=== PATIENT | male | born 1945 | race Caucasian/White ===

== ENCOUNTER 2016-07-03 22:46 | Emergency (ER) | payer OTHER ==
--- NOTE | 2016-07-04 01:03 | ED ORDER SUMMARY ---
..... Patient: RUDDY DANIELS OrderSheet [facility] VisitID: [id number] [address] [place] [address] 70y, M Registration Date/Time: 07/03/2016 ORDER SHEET Weight: 102.0 kg (stated) Allergies: No Known Drug Allergy GENERAL ORDERS: MEDICATION ORDERS: Clonidine PO 0.2 mg (NOW) (23:50 07/03/2016 Gabino FRIAS) (Ack 23:53 Lurdes R.Miya) (23:57 Leonardo Art) IV FLUIDS: ORDER SHEET NOTES: [Electronically signed by Danitza Fernandez R.N. (01:06 07/04/2016)] [Electronically signed by Hieu Castellon MD (10:01 07/07/2016)] [Electronically locked/signed by Danitza Fernandez R.N. (01:06 07/04/2016)]
--- NOTE | 2016-07-04 01:03 | ED NURSING NOTES ---
Clinical Report - Nurses [facility] [address] [place] [place] [address] 07/03/2016 22:47 [id number] Triage time 23:20 Jul 03 2016. Acuity: LEVEL 3. Chief Complaint: (HBP with double vision). Alert. CLEM COMA SCORE: Clem Coma Scale: 15- eyes open spontaneously (4); best verbal response- oriented x 4 (5); best motor response- obeys commands (6). --23:42 Cuong Cabrera R.N. 23:24 07/03/16. BP: 171/104. HR: 67. RR: 16. O2 saturation: 93% on room air. Temp: 98.9 F. Pain level now: 0/10. --23:42 Cuong Cabrera R.N. Weight: 102 kg stated. Height/Length: 72 inches Per Patient. BMI: 30.5. --23:42 Cuong Cabrera R.N. Medications Allopurinol Oral 300 mg, daily. AmLODIPine Besylate Oral 5 mg. Hydrochlorothiazide Oral 12.5 mg, 2x a day. --23:34 Cuong Cabrera R.N. Metoprolol Succinate ER Oral 50mg, daily. --23:36 Cuong Cabrera R.N. Lisinopril Oral 20 mg, 2x a day. --23:36 Cuong Cabrera R.N. Allergies No Known Drug Allergy. --23:33 Cuong Cabrera R.N. History Arrived by private vehicle. Historian: patient. Accompanied by spouse. Primary physician (Riley Peres). ( Seeing double and went to cost manager who sent him to another cost manager. Pt states that he might have gotten some home medications mixed.). This started yesterday. He has had weakness and a cough. ( Traveled to [place] recently and got pneumonia). Treatment DEVELOPMENT DIRECTOR: None. (took an extra Amlodipine 5 hours ago). PAST MEDICAL HX: Hypertension. Immunizations: up-to-date. SOCIAL HX: Never smoker. No alcohol use or drug use. No infectious disease exposure. ABUSE ASSESSMENT: No report of abuse. FALL RISK ASSESSMENT: Fall risk assessment completed. No fall risk identified. NUTRITIONAL RISK ASSESSMENT: The nutritional risk assessment revealed no deficiencies. FUNCTIONAL ASSESSMENT: Functional assessment: no impairments noted. LEARNING NEEDS ASSESSMENT: The learning needs assessment revealed no barriers. SKIN INTEGRITY ASSESSMENT: Skin integrity risk assessment completed. No skin integrity risk identified. --23:42 Cuong Cabrera R.N. PROBLEMS: Subungual Hematoma. Laceration. Crush Injury. Fractured Phalanx (Finger). Hypertension. Hepatitis. --23:38 Cuong Cabrera R.N. ADDITIONAL SURGERIES: Achilles Tendon Repair. --23:40 Cuong Cabrera R.N. Interventions ID and allergy band on patient. To treatment room. --23:42 Cuong Cabrera R.N. PHYSICAL ASSESSMENT Ambulatory to room. GENERAL / NEURO / PSYCH: Alert. Oriented X 4. Appears in pain. HEENT: No facial asymmetry noted. Mucous membranes are pink. RESPIRATORY: Respirations not labored. CVS: Normal sinus rhythm noted. Pulses within normal limits. GI / : Abdomen soft and nontender and normal bowel sounds. SKIN: Skin intact. Skin is warm and dry. Normal skin turgor. --00:06 Cuong Cabrera R.N. NURSING PROGRESS NOTES Patient gowned. Reassurance given to the patient and patient's family. Patient identifiers checked. Call light placed in reach. Side rails up x 1. Bed placed in lowest position. Brakes of bed on. Patient ready for evaluation- chart flagged and ED physician notified. --23:43 Cuong Cabrera R.N. 23:57 07/03/2016 Clonidine PO 0.2 mg given. Allergies verified and confirmed 5 rights. --23:57 Bay Cerna R.N. Care transferred and report received. --00:07 Danitza Fernandez R.N. DISPOSITION / DISCHARGE 01:05 07/04/16. BP: 159/104. HR: 63. RR: 15. O2 saturation: 98% on room air. Temp: deferred. Keith-Miller pain scale: 2/10. --01:06 Danitza Fernandez R.N. Condition at departure: stable. No learning barriers present. Discharge instructions provided and reviewed with the patient. Patient verbalized understanding. Written instructions provided in Algerian. The patient was discharged home and accompanied by spouse. He left the Emergency Department ambulatory and via private vehicle. Spouse driving. --01:06 Danitza Fernandez R.N. Locked/Released at 07/04/2016 1:06 by Danitza Fernandez R.N.
--- NOTE | 2016-07-04 01:03 | ED NURSING NOTES ---
Clinical Report - Nurses [facility] [address] [place] [address] 07/03/2016 22:47 [id number] TRI[facility] Triage time 23:20 Jul 03 2016. Acuity: LEVEL 3. Chief Complaint: (HBP with double vision). Alert. CLEM COMA SCORE: Clem Coma Scale: 15- eyes open spontaneously (4); best verbal response- oriented x 4 (5); best motor response- obeys commands (6). --23:42 Cuong Cabrera R.N. 23:24 07/03/16. BP: 171/104. HR: 67. RR: 16. O2 saturation: 93% on room air. Temp: 98.9 F. Pain level now: 0/10. --23:42 Cuong Cabrera R.N. Weight: 102 kg stated. Height/Length: 72 inches Per Patient. BMI: 30.5. --23:42 Cuong Cabrera R.N. Medications Allopurinol Oral 300 mg, daily. AmLODIPine Besylate Oral 5 mg. Hydrochlorothiazide Oral 12.5 mg, 2x a day. --23:34 Cuong Cabrera R.N. Metoprolol Succinate ER Oral 50mg, daily. --23:36 Cuong Cabrera R.N. Lisinopril Oral 20 mg, 2x a day. --23:36 Cuong Cabrera R.N. Allergies No Known Drug Allergy. --23:33 Cuong Cabrera R.N. History Arrived by private vehicle. Historian: patient. Accompanied by spouse. Primary physician (Riley Peres). ( Seeing double and went to watch assembler who sent him to another watch assembler. Pt states that he might have gotten some home medications mixed.). This started yesterday. He has had weakness and a cough. ( Traveled to [place] recently and got pneumonia). Treatment DIANETIC COUNSELOR: None. (took an extra Amlodipine 5 hours ago). PAST MEDICAL HX: Hypertension. Immunizations: up-to-date. SOCIAL HX: Never smoker. No alcohol use or drug use. No infectious disease exposure. ABUSE ASSESSMENT: No report of abuse. FALL RISK ASSESSMENT: Fall risk assessment completed. No fall risk identified. NUTRITIONAL RISK ASSESSMENT: The nutritional risk assessment revealed no deficiencies. FUNCTIONAL ASSESSMENT: Functional assessment: no impairments noted. LEARNING NEEDS ASSESSMENT: The learning needs assessment revealed no barriers. SKIN INTEGRITY ASSESSMENT: Skin integrity risk assessment completed. No skin integrity risk identified. --23:42 Cuong Cabrera R.N. PROBLEMS: Subungual Hematoma. Laceration. Crush Injury. Fractured Phalanx (Finger). Hypertension. Hepatitis. --23:38 Cuong Cabrera R.N. ADDITIONAL SURGERIES: Achilles Tendon Repair. --23:40 Cuong Cabrera R.N. Interventions ID and allergy band on patient. To treatment room. --23:42 Cuong Cabrera R.N. PHYSICAL ASSESSMENT Ambulatory to room. GENERAL / NEURO / PSYCH: Alert. Oriented X 4. Appears in pain. HEENT: No facial asymmetry noted. Mucous membranes are pink. RESPIRATORY: Respirations not labored. CVS: Normal sinus rhythm noted. Pulses within normal limits. GI / : Abdomen soft and nontender and normal bowel sounds. SKIN: Skin intact. Skin is warm and dry. Normal skin turgor. --00:06 Cuong Cabrera R.N. NURSING PROGRESS NOTES Patient gowned. Reassurance given to the patient and patient's family. Patient identifiers checked. Call light placed in reach. Side rails up x 1. Bed placed in lowest position. Brakes of bed on. Patient ready for evaluation- chart flagged and ED physician notified. --23:43 Cuong Cabrera R.N. 23:57 07/03/2016 Clonidine PO 0.2 mg given. Allergies verified and confirmed 5 rights. --23:57 Bay Cerna R.N. Care transferred and report received. --00:07 Danitza Fernandez R.N. DISPOSITION / DISCHARGE 01:05 07/04/16. BP: 159/104. HR: 63. RR: 15. O2 saturation: 98% on room air. Temp: deferred. Keith-Miller pain scale: 2/10. --01:06 Danitza Fernandez R.N. Condition at departure: stable. No learning barriers present. Discharge instructions provided and reviewed with the patient. Patient verbalized understanding. Written instructions provided in Monegasque. The patient was discharged home and accompanied by spouse. He left the Emergency Department ambulatory and via private vehicle. Spouse driving. --01:06 Danitza Fernandez R.N. Locked/Released at 07/04/2016 1:06 by Danitza Fernandez R.N.
--- NOTE | 2016-07-04 01:03 | ED CLINICAL REPORT ---
Clinical Report - Physicians/Mid Levels [facility] [address] [place] [address] 07/03/2016 22:47 [id number] Time Seen: 23:23. Arrived- By private vehicle. Historian- patient. HISTORY OF PRESENT ILLNESS Chief Complaint: BLOOD PRESSURE ELEVATED. This started today and is still present. It was gradual in onset. (the patient was seen by an sinker puller today. He apparently had markedly elevated blood pressures at that time. He was sent to his primary care doctor's office and they made changes to his antihypertensive regimen. When he went home after picking up the medications he mistook one of his blood pressure medications and his zolpidem. He is now very tired and "groggy" however, he and his are concerned because his blood pressures have been elevated. He saw the sinker puller today because he has been having problems with double vision over the past few days. He says that this is resolved now.). REVIEW OF SYSTEMS No chills, fever, sweats, calf pain or chest pain. No cough, difficulty breathing, pedal edema, palpitations or abdominal pain. No constipation, diarrhea, nausea, vomiting or urinary problems. All systems otherwise negative, except as recorded above. PAST HISTORY Medications: Zolpidem Tartrate Oral. Lisinopril Oral 20 mg, 2x a day. Metoprolol Succinate ER Oral 50mg, daily. Allopurinol Oral 300 mg, daily. AmLODIPine Besylate Oral 5 mg. Hydrochlorothiazide Oral 12.5 mg, 2x a day. Allergies: No Known Drug Allergy. SOCIAL HISTORY Never smoker. No alcohol use or drug use. Is a local resident. He lives with spouse. Has good social support. FAMILY HISTORY Denies family medical history. ADDITIONAL NOTES The nursing notes have been reviewed. PHYSICAL EXAM Vital Signs: 07/03/2016 23:25 BP: 171/104. HR: 67. RR: 16. O2 saturation: 93%. Temp: 98.9 F. Pain level now: 0/10. Appearance: Alert. Eyes: Pupils equal, round and reactive to light and light. Funduscopic exam normal. ENT: Pharynx normal. Neck: Normal inspection. Neck supple. No carotid bruit. CVS: Normal heart rate and rhythm. Heart sounds normal. Respiratory: No respiratory distress. Breath sounds normal. Abdomen: No visible injury. Soft and nontender. Bowel sounds normal. No organomegaly. No mass. Back: Normal inspection. Skin: Skin warm and dry. Normal skin color. Normal skin turgor. Extremities: Extremities exhibit normal ROM. No calf tenderness. No lower extremity edema. Neuro: Oriented X 3. No motor deficit. No sensory deficit. PROGRESS AND PROCEDURES Course of Care: Patient is stable. Patient/family counseled. Old medical records reviewed. Disposition: Discharged. Condition: stable. CLINICAL IMPRESSION Uncontrolled hypertension. INSTRUCTIONS No driving or operating machinery. Warnings: Further evaluation is necessary. GENERAL WARNINGS: Return or contact your physician immediately if your condition worsens or changes unexpectedly, if not improving as expected, or if other problems arise. Your Current Medications: STOP TAKING THE FOLLOWING MEDICATIONS: Zolpidem Tartrate Oral. CONTINUE TAKING THE FOLLOWING MEDICATIONS: Allopurinol Oral : 300 mg daily. AmLODIPine Besylate Oral : 5 mg. Hydrochlorothiazide Oral : 12.5 mg 2x a day. Lisinopril Oral : 20 mg 2x a day. Metoprolol Succinate ER Oral : 50mg daily. Follow-up: Return to the emergency department as needed. Follow up with your doctor in four days. Call for the next available appointment. Understanding of the discharge instructions verbalized by patient. (Electronically signed by Hieu Castellon MD 07/07/2016 10:01)
--- NOTE | 2016-07-04 01:03 | ED ORDER SUMMARY ---
..... Patient: RUDDY DANIELS OrderSheet [facility] VisitID: [id number] [address] [place] [address] 70y, M Registration Date/Time: 07/03/2016 ORDER SHEET Weight: 102.0 kg (stated) Allergies: No Known Drug Allergy GENERAL ORDERS: MEDICATION ORDERS: Clonidine PO 0.2 mg (NOW) (23:50 07/03/2016 Gabino FRIAS) (Ack 23:53 Lurdes R.Miya) (23:57 Leonardo Art) IV FLUIDS: ORDER SHEET NOTES: [Electronically signed by Danitza Fernandez R.N. (01:06 07/04/2016)] [Electronically signed by Hieu Castellon MD (10:01 07/07/2016)] [Electronically locked/signed by Danitza Fernandez R.N. (01:06 07/04/2016)]
--- NOTE | 2016-07-04 01:03 | ED CLINICAL REPORT ---
Clinical Report - Physicians/Mid Levels [facility] [address] [place] [address] 07/03/2016 22:47 [id number] Time Seen: 23:23. Arrived- By private vehicle. Historian- patient. HISTORY OF PRESENT ILLNESS Chief Complaint: BLOOD PRESSURE ELEVATED. This started today and is still present. It was gradual in onset. (the patient was seen by an bufferer today. He apparently had markedly elevated blood pressures at that time. He was sent to his primary care doctor's office and they made changes to his antihypertensive regimen. When he went home after picking up the medications he mistook one of his blood pressure medications and his zolpidem. He is now very tired and "groggy" however, he and his are concerned because his blood pressures have been elevated. He saw the bufferer today because he has been having problems with double vision over the past few days. He says that this is resolved now.). REVIEW OF SYSTEMS No chills, fever, sweats, calf pain or chest pain. No cough, difficulty breathing, pedal edema, palpitations or abdominal pain. No constipation, diarrhea, nausea, vomiting or urinary problems. All systems otherwise negative, except as recorded above. PAST HISTORY Medications: Zolpidem Tartrate Oral. Lisinopril Oral 20 mg, 2x a day. Metoprolol Succinate ER Oral 50mg, daily. Allopurinol Oral 300 mg, daily. AmLODIPine Besylate Oral 5 mg. Hydrochlorothiazide Oral 12.5 mg, 2x a day. Allergies: No Known Drug Allergy. SOCIAL HISTORY Never smoker. No alcohol use or drug use. Is a local resident. He lives with spouse. Has good social support. FAMILY HISTORY Denies family medical history. ADDITIONAL NOTES The nursing notes have been reviewed. PHYSICAL EXAM Vital Signs: 07/03/2016 23:25 BP: 171/104. HR: 67. RR: 16. O2 saturation: 93%. Temp: 98.9 F. Pain level now: 0/10. Appearance: Alert. Eyes: Pupils equal, round and reactive to light and light. Funduscopic exam normal. ENT: Pharynx normal. Neck: Normal inspection. Neck supple. No carotid bruit. CVS: Normal heart rate and rhythm. Heart sounds normal. Respiratory: No respiratory distress. Breath sounds normal. Abdomen: No visible injury. Soft and nontender. Bowel sounds normal. No organomegaly. No mass. Back: Normal inspection. Skin: Skin warm and dry. Normal skin color. Normal skin turgor. Extremities: Extremities exhibit normal ROM. No calf tenderness. No lower extremity edema. Neuro: Oriented X 3. No motor deficit. No sensory deficit. PROGRESS AND PROCEDURES Course of Care: Patient is stable. Patient/family counseled. Old medical records reviewed. Disposition: Discharged. Condition: stable. CLINICAL IMPRESSION Uncontrolled hypertension. INSTRUCTIONS No driving or operating machinery. Warnings: Further evaluation is necessary. GENERAL WARNINGS: Return or contact your physician immediately if your condition worsens or changes unexpectedly, if not improving as expected, or if other problems arise. Your Current Medications: STOP TAKING THE FOLLOWING MEDICATIONS: Zolpidem Tartrate Oral. CONTINUE TAKING THE FOLLOWING MEDICATIONS: Allopurinol Oral : 300 mg daily. AmLODIPine Besylate Oral : 5 mg. Hydrochlorothiazide Oral : 12.5 mg 2x a day. Lisinopril Oral : 20 mg 2x a day. Metoprolol Succinate ER Oral : 50mg daily. Follow-up: Return to the emergency department as needed. Follow up with your doctor in four days. Call for the next available appointment. Understanding of the discharge instructions verbalized by patient. (Electronically signed by Hieu Castellon MD 07/07/2016 10:01)
--- NOTE | 2016-07-07 10:01 | ED MAR SUMMARY ---
..... Medication Administration Record [facility] [address] [place] [address] Patient: RUDDY DANIELS Visit ID: [id number] 70y, M Weight: 102.0 kg Height/Length: 72 in BMI: 30.5 ALLERGIES: No Known Drug Allergy Given 23:57 07/03/2016 Bay Cerna R.N. Medication Administered: CLONIDINE [PO], Dose: 0.2 mg PO. Medication Ordered: Clonidine PO 0.2 mg (NOW).
--- NOTE | 2016-07-07 10:01 | ED DISCHARGE INSTRUCTIONS ---
Patient: RUDDY DANIELS General Instructions [facility] VisitID: [id number] [address] [place] [address] 70y, M Registration Date/Time: 07/03/2016 Uncontrolled hypertension. INSTRUCTIONS No driving or operating machinery. Warnings: Further evaluation is necessary. GENERAL WARNINGS: Return or contact your physician immediately if your condition worsens or changes unexpectedly, if not improving as expected, or if other problems arise. Your Current Medications: STOP TAKING THE FOLLOWING MEDICATIONS: Zolpidem Tartrate Oral. CONTINUE TAKING THE FOLLOWING MEDICATIONS: Allopurinol Oral : 300 mg daily. AmLODIPine Besylate Oral : 5 mg. Hydrochlorothiazide Oral : 12.5 mg 2x a day. Lisinopril Oral : 20 mg 2x a day. Metoprolol Succinate ER Oral : 50mg daily. Follow-up: Return to the emergency department as needed. Follow up with your doctor in four days. Call for the next available appointment. Understanding of the discharge instructions verbalized by patient. ADDITIONAL INFORMATION Hypertension, Out Of Control (Established) Your blood pressure was unusually high today. This can occur as a result of missing doses of your blood pressure medicine. Some asthma inhalers, decongestants, diet pills, and street drugs such as cocaine and amphetamine can worsen hypertension. An increase in body weight, increase in salt intake, smoking, and caffeine are other causes. Emotional upset or acute pain can cause a sudden rapid rise in blood pressure which may return to normal after a period of rest. A normal blood pressure is less than 140/90. The first (top) number is the systolic pressure. The second (bottom) number is the diastolic pressure. Hypertension exists when either the top number is 140 or higher, OR the bottom number is 90 or higher on repeated measurements. Home Care: All patients with high blood pressure should do the following to lower their pressure. If you are on blood pressure medicines, then these methods may reduce or eliminate your need for medicines in the future. Begin a weight-loss program if you are overweight. Reduce your salt intake. Avoid high-salt foods (olives, pickles, smoked meats, salted potato chips, etc.). Do not add salt to your food at the table. Use only small amounts of salt when cooking. Begin an exercise program. Discuss with your doctor what type of exercise program would be best for you. It doesnt have to be difficult. Even brisk walking for 20 minutes3 times a week is a good form of exercise. Avoid medicines which contain heart stimulants. This includes many cold and sinus decongestant pills and sprays as well as diet pills. Check the warnings about hypertension on the label. Stimulants such as amphetamine or cocaine could be lethal for someone with hypertension. Never take these. Limit your caffeine intake or switch to decaf. Stop smoking. If you are a long-time smoker, this can be hard. Enroll in a stop-smoking program to improve your chance of success. Talk to your physician about ways to improve your chance of success. Learning how to handle stress better is an important part of any program to lower blood pressure. Learn about relaxation methods such as meditation, yoga, or biofeedback. If medicines were prescribed, take them exactly as directed. Missing doses may cause your blood pressure to get out of control. Consider buying an automatic blood pressure machine (available at many pharmacies). Use this to monitor your blood pressure and report to your doctor. Follow Up: Regular visits to your own doctor for blood pressure checks and medicine adjustment is an important part of your care. Make a follow-up appointment as directed by our staff. Get Prompt Medical Attention if any of the following occur: Chest, arm, shoulder, neck, or upper back pain Shortness of breath Severe headache Throbbing or rushing sound in the ears Nosebleed Extreme drowsiness, confusion, or fainting Dizziness or vertigo (dizziness with spinning sensation) Weakness of an arm or leg or one side of the face Difficulty with speech or vision You have been given the following additional information: Hypertension, Established, Out Of Control No driving or operating machinery. (Electronically signed by Hieu Castellon MD 07/07/2016 10:01)
--- NOTE | 2016-07-07 10:01 | ED MAR SUMMARY ---
..... Medication Administration Record [facility] [address] [place] [address] Patient: RUDDY DANIELS Visit ID: [id number] 70y, M Weight: 102.0 kg Height/Length: 72 in BMI: 30.5 ALLERGIES: No Known Drug Allergy Given 23:57 07/03/2016 Bay Cerna R.N. Medication Administered: CLONIDINE [PO], Dose: 0.2 mg PO. Medication Ordered: Clonidine PO 0.2 mg (NOW).
--- NOTE | 2016-07-07 10:02 | ED MED RECONCILIATION SUMMARY ---
Patient: RUDDY DANIELS Medication Reconciliation Report [facility] VisitID: [id number] [address] [place] [address] 70y, M Registration Date/Time: 07/03/2016 Weight: 102.0 kg Height/Length: 72 in. BMI: 30.5 ALLERGIES: No Known Drug Allergy The patient's Home Medications are listed below: STOP TAKING THE FOLLOWING MEDICATIONS: Zolpidem Tartrate Oral CONTINUE TAKING THE FOLLOWING MEDICATIONS: Allopurinol Oral 300 mg, daily AmLODIPine Besylate Oral 5 mg Hydrochlorothiazide Oral 12.5 mg, 2x a day Lisinopril Oral 20 mg, 2x a day Metoprolol Succinate ER Oral 50mg, daily The source(s) of the original Home Medication information: Not obtained. The following Medications were given to the patient in the Emergency Department: Clonidine [PO] PO 0.2 mg, administered: 07/03/2016 11:57:00 PM The following Medications were prescribed to the patient: None.
--- NOTE | 2016-07-07 10:02 | ED MED RECONCILIATION SUMMARY ---
Patient: RUDDY DANIELS Medication Reconciliation Report [facility] VisitID: [id number] [address] [place] [address] 70y, M Registration Date/Time: 07/03/2016 Weight: 102.0 kg Height/Length: 72 in. BMI: 30.5 ALLERGIES: No Known Drug Allergy The patient's Home Medications are listed below: STOP TAKING THE FOLLOWING MEDICATIONS: Zolpidem Tartrate Oral CONTINUE TAKING THE FOLLOWING MEDICATIONS: Allopurinol Oral 300 mg, daily AmLODIPine Besylate Oral 5 mg Hydrochlorothiazide Oral 12.5 mg, 2x a day Lisinopril Oral 20 mg, 2x a day Metoprolol Succinate ER Oral 50mg, daily The source(s) of the original Home Medication information: Not obtained. The following Medications were given to the patient in the Emergency Department: Clonidine [PO] PO 0.2 mg, administered: 07/03/2016 11:57:00 PM The following Medications were prescribed to the patient: None.
== END 2016-07-04 01:05 | disposition home or self-care (01) ==
LOC: ED SRH 22:46
DX: I10 Essential (primary) hypertension (principal); Z79.899 Other long term (current) drug therapy

== ENCOUNTER 2016-07-07 09:04 | Emergency (ER) | payer OTHER ==
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
--- NOTE | 2016-07-07 12:06 | ED ORDER SUMMARY ---
..... Patient: RUDDY DANIELS OrderSheet [facility] VisitID: [id number] [place] [address] 70y, M Registration Date/Time: 07/07/2016 ORDER SHEET Weight: 103.4 kg (stated) Allergies: No Known Drug Allergy GENERAL ORDERS: Chest 1V Urgent (09:07/07/2016 Gabino FRIAS) (Ack 9:50 Boris) (10:40 LWhalen R.N.) CT Head wo Cont Urgent (09:07/07/2016 Gabino FRIAS) (Ack 9:50 RKtyrauga) (10:40 LWhalen R.N.) Pelvis 1 or 2V Urgent (:07/07/2016 Gabino FRIAS) (Ack 9:50 RKtyrauga) (10:40 LWhalen R.N.) Hand 3 or 4V Left Urgent (09:07/07/2016 Gabino FRIAS) (Ack 9:50 RKtyrauga) (10:40 LWhalen R.N.) Tibia/Fibula Left Urgent (:07/07/2016 Gabino FRIAS) (Ack 9:49 RKaruga) (10:40 LWhalen R.N.) Shoulder 2V or more Left Urgent (:07/07/2016 Gabino FRIAS) (Ack 9:49 RKtyrauga) (10:40 LWhalen R.N.) CBC w Diff Urgent (:07/07/2016 Gabino FRIAS) (9:46 ALawrence ER Tech1) CMP Urgent (:07/07/2016 Gabino FRIAS) (9:46 ALawrence ER Tech1) UA-Culture if indicated Urgent (:07/07/2016 Gabino FRIAS) (9:46 ALawrence ER Tech1) PT with INR Urgent (:07/07/2016 Gabino FRIAS) (9:46 ALawrence ER Tech1) PTT Urgent (:07/07/2016 Gabino FRIAS) (9:46 ALawrence ER Tech1) Amylase Urgent (:07/07/2016 Gabino FRIAS) (9:46 ALawrence ER Tech1) Lipase Urgent (09:17 07/07/2016 Gabino FRIAS) (9:46 ALawrence ER Tech1) Urine Drug Screen Urgent (09:17 07/07/2016 Gabino FRIAS) (9:46 ALawrence ER Tech1) Ethyl Alcohol Urgent (09:17 07/07/2016 Gabino FRIAS) (9:46 ALawrence ER Tech1) CT Cervical Spine wo Cont Urgent (09:25 07/07/2016 Gabino FRIAS) (Ack 9:49 RKaruga) (10:40 LWhalen R.N.) CTA Thorax w Cont (No) (see report) Urgent (10:36 07/07/2016 Gabino FRIAS) (10:40 LWhalen R.N.) (Cancelled: Other10:51 Gabino FRIAS) Splint (Finger) (Left) (Ring) (Aluminum Foam) (10:38 07/07/2016 Gabino FRIAS) (10:40 LWhalen R.N.) CTA Thorax/Abdomen/Pelvis (No) (See report) Urgent (10:51 07/07/2016 Gabino FRIAS) (Ack 11:25 LTapper) MEDICATION ORDERS: IV FLUIDS: IV NS : initial bolus 1000 mL (1000 mL/hr), then 150 mL/hr for 4h (NOW); Urgent (09:16 07/07/2016 Gabino FRIAS) (10:39 LWhalen R.N.) Labetalol IV 10 mg (NOW) (10:39 07/07/2016 LWhalen R.N. verbal order read back to Gabino FRIAS) (10:39 LWhalen R.N.) Ancef IV 1 gm/50mL (NOW) (12:04 07/07/2016 LWhalen R.N. verbal order read back to Gabino FRIAS) (12:05 LWhalen R.N.) ORDER SHEET NOTES: [Electronically signed by Audrey Renner R.N. (18:43 07/07/2016)] [Electronically signed by Hieu Castellon MD (18:27 07/08/2016)] [Electronically locked/signed by Audrey Renner R.N. (18:43 07/07/2016)]
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
--- NOTE | 2016-07-08 18:27 | ED DISCHARGE INSTRUCTIONS ---
Patient: RUDDY DANIELS General Instructions [facility] VisitID: [id number] [address] [place] [place] [address] 70y, M Registration Date/Time: 07/07/2016 Closed head injury traumatic intracranial hemorrhage. (5 mm right frontal extra-axial acute hemorrhage, likely subdural, without mass effect). Proximal phalanx fracture of the left ring finger. Multiple superficial abrasions to the left hand and left lower leg. Closed left clavicle shaft fracture. 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 Sclerotic metastasis is a consideration. (Electronically signed by Hieu Castellon MD 07/08/2016 18:27)
--- NOTE | 2016-07-08 18:27 | ED MAR SUMMARY ---
..... Medication Administration Record [facility] [address] [place] [address] Patient: RUDDY DANIELS Visit ID: [id number] 70y, M Weight: 103.4 kg Height/Length: 72 in BMI: 30.9 ALLERGIES: No Known Drug Allergy Start 10:39 07/07/2016 Audrey Renner R.N., Stop 11:00 07/07/2016 Audrey Renner R.N. Medication Administered: IV NS (SALINE), Dose: IV Fluids over 1 hour(s), Rate: 1000 mL/hr, Dispensed: 1000 mL bag, Site: #2 right wrist. Medication Ordered: IV NS : initial bolus 1000 mL (1000 mL/hr), then 150 mL/hr for 4h (NOW); Urgent. Given 10:39 07/07/2016 Audrey Renner R.N. Medication Administered: LABETALOL [IVP], Dose: 10 mg IVP over 2 minute(s), Site: #2 right wrist. Medication Ordered: Labetalol IV 10 mg (NOW). Start 11:07/07/2016 Audrey Renner R.N., Continued Upon Transfer 11:45 07/07/2016 Audrey Renner R.N. Medication Administered: IV NS (SALINE), Dose: IV Fluids over 8 hour(s), Rate: 125 mL/hr, Dispensed: 1000 mL bag, Site: #2 right wrist. Medication Ordered: IV NS : initial bolus 1000 mL (1000 mL/hr), then 150 mL/hr for 4h (NOW); Urgent. Given 11:07/07/2016 Audrey Renner R.N. Medication Administered: LABETALOL [IVP], Dose: 10 mg IVP over 2 minute(s), Site: #2 right wrist. Medication Ordered: Labetalol IV 10 mg (NOW). Start 11:40 07/07/2016 Audrey Renner R.N., Continued Upon Transfer 11:45 07/07/2016 Audrey Renner R.N. Medication Administered: ANCEF [IVPB] (CEFAZOLIN SODIUM), Dose: 1 gm IVPB over 1 hour(s), Rate: 100 mL/hr, Dispensed: 50 mL bag, Site: #1 . Medication Ordered: Ancef IV 1 gm/50mL (NOW).
--- NOTE | 2016-07-08 18:27 | ED MED RECONCILIATION SUMMARY ---
Patient: RUDDY DANIELS Medication Reconciliation Report [facility] VisitID: [id number] [address] [place] [address] 70y, M Registration Date/Time: 07/07/2016 Weight: 103.4 kg Height/Length: 72 in. BMI: 30.9 ALLERGIES: No Known Drug Allergy The patient's Home Medications are listed below: THE FOLLOWING MEDICATIONS NEED TO BE RECONCILED: Allopurinol Oral 300 mg, daily AmLODIPine Besylate Oral 5 mg Hydrochlorothiazide Oral 12.5 mg, 2x a day Lisinopril Oral 20 mg, 2x a day Metoprolol Succinate ER Oral 50mg, daily Zolpidem Tartrate Oral The source(s) of the original Home Medication information: Not obtained. The following Medications were given to the patient in the Emergency Department: IV NS IV Fluids bolus 0, then 1000 mL/hr, administered: 07/07/2016 10:39:00 AM Labetalol [IVP] IVP 10 mg, administered: 07/07/2016 10:39:00 AM Labetalol [IVP] IVP 10 mg, administered: 07/07/2016 11:22:00 AM Ancef [IVPB] IVPB bolus 0, then 1 gm 100 mL/hr, administered: 07/07/2016 11:40:00 AM IV NS IV Fluids bolus 0, then 125 mL/hr, administered: 07/07/2016 11:10:00 AM The following Medications were prescribed to the patient: None.
--- NOTE | 2016-07-08 18:27 | ED DISCHARGE INSTRUCTIONS ---
Patient: RUDDY DANIELS General Instructions [facility] VisitID: [id number] [address] [place] [address] 70y, M Registration Date/Time: 07/07/2016 Closed head injury traumatic intracranial hemorrhage. (5 mm right frontal extra-axial acute hemorrhage, likely subdural, without mass effect). Proximal phalanx fracture of the left ring finger. Multiple superficial abrasions to the left hand and left lower leg. Closed left clavicle shaft fracture. 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 Sclerotic metastasis is a consideration. (Electronically signed by Hieu Castellon MD 07/08/2016 18:27)
--- NOTE | 2016-07-08 18:27 | ED MED RECONCILIATION SUMMARY ---
Patient: RUDDY DANIELS Medication Reconciliation Report [facility] VisitID: [id number] [address] [place] [address] 70y, M Registration Date/Time: 07/07/2016 Weight: 103.4 kg Height/Length: 72 in. BMI: 30.9 ALLERGIES: No Known Drug Allergy The patient's Home Medications are listed below: THE FOLLOWING MEDICATIONS NEED TO BE RECONCILED: Allopurinol Oral 300 mg, daily AmLODIPine Besylate Oral 5 mg Hydrochlorothiazide Oral 12.5 mg, 2x a day Lisinopril Oral 20 mg, 2x a day Metoprolol Succinate ER Oral 50mg, daily Zolpidem Tartrate Oral The source(s) of the original Home Medication information: Not obtained. The following Medications were given to the patient in the Emergency Department: IV NS IV Fluids bolus 0, then 1000 mL/hr, administered: 07/07/2016 10:39:00 AM Labetalol [IVP] IVP 10 mg, administered: 07/07/2016 10:39:00 AM Labetalol [IVP] IVP 10 mg, administered: 07/07/2016 11:22:00 AM Ancef [IVPB] IVPB bolus 0, then 1 gm 100 mL/hr, administered: 07/07/2016 11:40:00 AM IV NS IV Fluids bolus 0, then 125 mL/hr, administered: 07/07/2016 11:10:00 AM The following Medications were prescribed to the patient: None.
--- NOTE | 2016-07-08 18:27 | ED MAR SUMMARY ---
..... Medication Administration Record [facility] [address] [place] [address] Patient: RUDDY DANIELS Visit ID: [id number] 70y, M Weight: 103.4 kg Height/Length: 72 in BMI: 30.9 ALLERGIES: No Known Drug Allergy Start 10:39 07/07/2016 Audrey Renner R.N., Stop 11:00 07/07/2016 Audrey Renner R.N. Medication Administered: IV NS (SALINE), Dose: IV Fluids over 1 hour(s), Rate: 1000 mL/hr, Dispensed: 1000 mL bag, Site: #2 right wrist. Medication Ordered: IV NS : initial bolus 1000 mL (1000 mL/hr), then 150 mL/hr for 4h (NOW); Urgent. Given 10:39 07/07/2016 Audrey Renner R.N. Medication Administered: LABETALOL [IVP], Dose: 10 mg IVP over 2 minute(s), Site: #2 right wrist. Medication Ordered: Labetalol IV 10 mg (NOW). Start 11:07/07/2016 Audrey Renner R.N., Continued Upon Transfer 11:45 07/07/2016 Audrey Renner R.N. Medication Administered: IV NS (SALINE), Dose: IV Fluids over 8 hour(s), Rate: 125 mL/hr, Dispensed: 1000 mL bag, Site: #2 right wrist. Medication Ordered: IV NS : initial bolus 1000 mL (1000 mL/hr), then 150 mL/hr for 4h (NOW); Urgent. Given 11:07/07/2016 Audrey Renner R.N. Medication Administered: LABETALOL [IVP], Dose: 10 mg IVP over 2 minute(s), Site: #2 right wrist. Medication Ordered: Labetalol IV 10 mg (NOW). Start 11:40 07/07/2016 Audrey Renner R.N., Continued Upon Transfer 11:45 07/07/2016 Audrey Renner R.N. Medication Administered: ANCEF [IVPB] (CEFAZOLIN SODIUM), Dose: 1 gm IVPB over 1 hour(s), Rate: 100 mL/hr, Dispensed: 50 mL bag, Site: #1 . Medication Ordered: Ancef IV 1 gm/50mL (NOW).
== END 2016-07-07 11:55 | disposition short-term general hospital (02) ==
LOC: ED SRH 09:04
DX: S62.615A Displaced fracture of proximal phalanx of left ring finger, initial encounter for closed fracture (principal); S42.022A Displaced fracture of shaft of left clavicle, initial encounter for closed fracture; S60.512A Abrasion of left hand, initial encounter; S80.812A Abrasion, left lower leg, initial encounter; V49.40XA Driver injured in collision with unspecified motor vehicles in traffic accident, initial encounter; Y93.I9 Activity, other involving external motion; Y92.410 Unspecified street and highway as the place of occurrence of the external cause; Y99.9 Unspecified external cause status; R93.7 Abnormal findings on diagnostic imaging of other parts of musculoskeletal system